=== PATIENT | male | born 2000 | race Caucasian/White ===

== ENCOUNTER 2019-01-02 18:41 | Inpatient (IN) | payer OTHER ==
[~2019-01-02 18:41] MED LIST: Dexamethasone 20 MG/5 ML VIAL ONE; Ketorolac Tromethamine 30 MG/ML VIAL ONE; Lidocaine 1% PF 5 ML VIAL ONE; Ondansetron PF 4 MG/2 ML Vial ONE; PROPOFOL 200 MG/20 ML VIAL ONE; Succinylcholine Chloride 20 MG/ML 10 ml SYRINGE FS ONE
[2019-01-02] MEDS ORDERED: Adacel (T-DAP) 0.5 ML SYRINGE ONE (18:50)
[2019-01-02] MEDS ORDERED: CEFAZOLIN 1 GM VIAL ONE (18:50)
[2019-01-02 19:01] LABS: #Eosinphils 0.2 thou/uL (0.0-0.7); #Lymphocytes 2.1 thou/uL (1.20-3.40); #Monocytes 0.5 thou/uL (0.11-0.59); #Neutrophils 3.2 thou/uL (1.40-6.50); %Basophils 0.8 % (0.0-1.0); %Eosinophils 3.9 % (0.0-10.0); %Lymphocytes 34.5 % (28.0-48.0); %Neutrophils 52.8 % (31.0-61.0); Hemoglobin 13.6 g/dL (14.0-18.0); Mean Corpuscular HGB CONC 33.5 g/dL (32.0-36.0); Mean Corpuscular Volume 89.5 fL (78.0-98.0); Mean Platelet Volume 8.5 fL (7.4-10.4); Platelet Count 209 thou/uL (130-400); RBC Distribution Width 12.4 % (11.5-14.5); Red Blood Cell (RBC) Count 4.55 mill/uL (4.00-5.20); White Blood Cell (WBC) Count 6.1 thou/uL (4.8-10.8)
--- NOTE | 2019-01-02 19:20 | RAD ---
LEFT ANKLE THREE VIEWS: 01/02/19 HISTORY: Fall. Left ankle pain. FINDINGS/IMPRESSION: There is a minimally displaced fracture involving the medial malleolus. POS: [facility]
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
--- NOTE | 2019-01-02 19:26 | RAD ---
LEFT FOOT THREE VIEWS 01/02/19 HISTORY: Fracture, left foot pain. FINDINGS/IMPRESSION: There is a minimally displaced fracture involving the medial malleolus. No fracture or dislocation is seen in the bones of the left foot. POS: [facility]
[2019-01-02 19:28] LABS: ALT (SGPT) 22 U/L (8-55); AST (SGOT) 20 U/L (5-34); Albumin 4.1 g/dL (3.5-5.0); Alkaline Phosphatase 49 U/L (Less than 750); Anion Gap 11 mmol/L (10-20); BUN (Urea Nitrogen) 17 mg/dL (8.9-20.6); Bilirubin, Total 0.3 mg/dL (0.2-1.2); Calc. Creatinine Clearance 0 mL/min (70-130); Calcium 8.8 mg/dL (7.8-10.44); Carbon Dioxide 27 mmol/L (22-29); Chloride 104 mmol/L (98-107); Estimated GFR-MDRD 90; Globulin 2.3 g/dL (2.4-3.5); Glucose 138 mg/dL (70-105); Potassium 3.8 mmol/L (3.5-5.1); Protein, Total 6.4 g/dL (6.0-8.3); Sodium 138 mmol/L (136-145)
[2019-01-02 20:31] LABS: Bilirubin Negative (Negative); Blood, Urine Negative (Negative); Clarity CLEAR (Clear); Glucose, Urine (Dipstick) Negative (Negative); Leukocyte Negative (Negative); Nitrite Negative (Negative); Protein, Urine (Dipstick) Trace mg/dL (Neg-Trace); Specific Gravity, Urine 1.016 (1.002-1.036); Urobilinogen 0.2 mg/dL (0.2-1.0)
[2019-01-02] MEDS ORDERED: Morphine 4 MG/ML VIAL ONE (20:49)
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
[2019-01-02] MEDS ORDERED: HYDROmorphone 0.5 MG/0.5 ML SYRINGE ONE (21:57)
[2019-01-02] MEDS ORDERED: Fentanyl 100 MCG/2 ML VIAL ONE (23:06)
[2019-01-03] MEDS ORDERED: Dextrose 50% Abboject 50 ML SYRINGE SLOW IVP PRN (00:57)
[2019-01-03] MEDS ORDERED: Sodium Chloride 0.9% 1,000 ML IV SCH (00:57)
[2019-01-03] MEDS ORDERED: Dextrose 5% in Water 1,000 ML IV PRN (00:57)
[2019-01-03] MEDS ORDERED: Cyclobenzaprine 10 MG TAB PO PRN (00:57)
[2019-01-03] MEDS ORDERED: traMADol HCl 50 MG TAB PO PRN (00:57)
[2019-01-03] MEDS ORDERED: Acetaminophen 1,000 MG in Premix Bag 1 BAG IVPB SCH (00:57)
[2019-01-03] MEDS ORDERED: CEFAZOLIN 1 GM VIAL SLOW IVP SCH (00:57)
[2019-01-03] MEDS ORDERED: Promethazine HCl 25 MG/ML VIAL IM PRN ×3 (00:57→01:14)
[2019-01-03] MEDS ORDERED: Ondansetron PF 4 MG/2 ML Vial IVP PRN (00:57)
[2019-01-03] MEDS ORDERED: Ondansetron ODT 4 MG TAB PO PRN (00:57)
[2019-01-03] MEDS ORDERED: hydrALAZINE 20 MG/ML VIAL SLOW IVP PRN (00:57)
[2019-01-03] MEDS ORDERED: Meperidine HCl/PF 25 MG/ML VIAL ONE (01:06)
[2019-01-03] MEDS ORDERED: Fentanyl 100 MCG/2 ML VIAL ONE ×3 (01:12→01:53)
[2019-01-03] MEDS ORDERED: Ondansetron HCl/PF 4 MG/2 ML Vial IVP PRN (01:14)
[2019-01-03] MEDS ORDERED: Promethazine HCl 25 MG/ML VIAL SLOW IVP PRN (01:14)
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
[2019-01-03] MEDS ORDERED: ceFAZolin 1 GM/D5W 1 GM in Premix Bag 1 BAG IVPB SCH (02:00)
[2019-01-03] MEDS: Acetaminophen 500 MG TAB PO SCH ×3 (02:22→11:33)
[2019-01-03] MEDS: Ibuprofen 800 MG TAB PO SCH ×2 (02:23→08:43)
[2019-01-03 02:38] VITALS: BMI 19.8
[2019-01-03] MEDS: traMADol HCl 50 MG TAB PO PRN ×2 (04:17→11:32)
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
[2019-01-03 05:39] LABS: #Lymphocytes 0.6 thou/uL (1.20-3.40); #Monocytes 0.3 thou/uL (0.11-0.59); #Neutrophils 8.4 thou/uL (1.40-6.50); %Basophils 0.4 % (0.0-1.0); %Eosinophils 0.1 % (0.0-10.0); %Lymphocytes 6.3 % (28.0-48.0); %Monocytes 3.3 % (0.0-4.0); %Neutrophils 89.9 % (31.0-61.0); Hemoglobin 12.2 g/dL (14.0-18.0); Mean Corpuscular HGB CONC 33.7 g/dL (32.0-36.0); Mean Corpuscular Hemoglobin 30.1 pg (25.0-35.0); Mean Corpuscular Volume 89.4 fL (78.0-98.0); Mean Platelet Volume 8.4 fL (7.4-10.4); Platelet Count 185 thou/uL (130-400); RBC Distribution Width 12.4 % (11.5-14.5); Red Blood Cell (RBC) Count 4.06 mill/uL (4.00-5.20); White Blood Cell (WBC) Count 9.3 thou/uL (4.8-10.8)
--- NOTE | 2019-01-03 07:27 | RAD ---
3 views left ankle history: Open reduction internal fixation left ankle. There is been open reduction internal fixation of the medial malleolar fracture. Medial fracture frag ments are in good anatomic alignment after placement of transosseous screws. IMPRESSION: Open reduction internal fixation left ankle.
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
[2019-01-03] MEDS: ceFAZolin 1 GM/D5W 1 GM in Premix Bag 1 BAG IVPB SCH ×2 (08:43→13:47)
[2019-01-03] MEDS ORDERED: Famotidine 20 MG TAB PO SCH (09:00)
[2019-01-03 11:25] VITALS: BP 108/57; TEMP 97.4
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
== END 2019-01-03 15:25 | disposition home or self-care (01) | DRG 494 ==
LOC: ERS 18:41 → SURG A 20:33
PROVIDERS: ADMIT Surgery; ATTEND Surgery
PROC: 0QSH04Z Reposition Left Tibia with Internal Fixation Device, Open Approach (ICD-10-PCS; principal; 2019-01-02)
DX: S82.52XB Displaced fracture of medial malleolus of left tibia, initial encounter for open fracture type I or II (principal); S91.012A Laceration without foreign body, left ankle, initial encounter; V23.4XXA Motorcycle driver injured in collision with car, pick-up truck or van in traffic accident, initial encounter
CPT/HCPCS: 27760; 36415; 71045; 76000; 80053; 81003; 83690; 85025; 86850; 86900; 86901; 90471; 90715; 96361; 96365; 96375; C1713; G0390; J0690; J1100; J1170; J1885; J2001; J2175; J2270; J2405; J2704; J3010